=== PATIENT | male | born 1930 | race Caucasian/White ===

== ENCOUNTER 2019-02-28 10:14 | Outpatient (RCR) | payer MEDICARE ==
[~2019-02-28] VITALS: Ht 170 cm; Wt 70.4 kg
[2019-02-28 10:20] VITALS: BP 130/89
[2019-02-28] MEDS ORDERED: NS IV 500 ML 500 ML ONE (10:23)
[2019-02-28] MEDS ORDERED: NS IV 500 ML 500 ML IV NR (11:15)
[2019-03-07] MEDS ORDERED: ONDA8TAB13 (12:16)
[2019-03-07] MEDS ORDERED: AMOX600S4 (12:16)
[2019-03-07] MEDS ORDERED: MORP100S3 (12:16)
[2019-03-07] MEDS ORDERED: TAMSULOSIN (12:17)
[2019-03-07] MEDS ORDERED: FLUC100T6 (12:17)
[2019-03-07] MEDS ORDERED: CEPH250S PO (15:32)
== END 2019-05-29 | disposition home or self-care (01) ==
LOC: SDC 10:14
PROVIDERS: ATTEND Internal Medicine
DX: R11.10 Vomiting, unspecified (principal)
CPT/HCPCS: 96360

== ENCOUNTER 2019-03-07 11:12 | Emergency (ER) | payer MEDICARE, BC | END 2019-03-07 16:12 | disposition home or self-care (01) | LOC: ER 11:12 ==